=== PATIENT | female | born 1950 | race Caucasian/White ===

== ENCOUNTER 2017-09-13 07:23 | Outpatient (CLI) | payer MEDICARE, BC ==
[~2017-09-13] VITALS: Ht 170.2 cm; Wt 75.0 kg
--- NOTE | ~2017-09-13 | OP ---
PATIENT NAME: ROSSANA CEVALLOS MEDICAL RECORD: [id number] :46 LOCATION:D.CAT ADMISSION DATE: SURGEON: NORRIS PERSAUD MD DATE OF OPERATION: 09/13/2017 PROCEDURES: 1. Left heart catheterization. 2. Selective coronary angiography. 3. Left ventriculogram. 4. Vein graft angiography. 5. QUIÑONES angiography. INDICATION: Angina and coronary artery disease. PROCEDURE IN DETAIL: After informed consent was obtained and after detailed explanation of risks, benefits as well as alternative therapies, the patient elected to proceed with angiogram and heart catheterization. The right femoral area was prepped and draped in normal sterile fashion. Right femoral artery was cannulated via modified Seldinger technique with placement of 5-Gambian sheath. All catheters exchanged through this sheath. FINDINGS: The left ventriculogram was performed in standard 30-degree KC view, reveals good cardiac wall motion throughout all segments. Overall ejection fraction preserved at 50%. SELECTIVE CORONARY ANGIOGRAPHY: 1. Left main is with no significant angiographic disease. 2. Left anterior descending is totally occluded. 3. Left circumflex has mild irregularities, but no flow-limiting stenosis. 4. QUIÑONES to the LAD is widely patent. 5. Vein graft to the LAD diagonal is widely patent. 6. The distal LAD is small thread-like vessel, but no significant disease. 7. The right coronary is widely patent. OVERALL IMPRESSION: Wide patency of all her bypass graft, perfusion defect on nuclear stress test was secondary to small nature of the LAD, but there is no significant disease. Continue medical management of the coronary artery disease and cardiac risk factors. TRANSINT:[id number] Voice Confirmation ID: [id number] DOCUMENT ID: [id number] NORRIS PERSAUD MD at 1705 CC: [id number] DICTATION DATE: 09/13/17 0902 SIZING END BANDER: 09/13/17 1312 DEP CLI 09/13/17 [id number] [place] [address]
--- NOTE | ~2017-09-13 | HEMODYNAMI ---
PATIENT:ROSSANA CEVALLOS MEDICAL RECORD: [id number] : 46 LOCATION:D.CAT ADMISSION DATE: 09/13/17 Generatedon:09/13/20179:04 Patient name: ROSSANA CEVALLOS Patient #: [id number] SSN: : 1950 Date of study: 09/13/2017 Page: Of Hemodynamic Procedure Report Patient Data Patient Demographics Procedure consent was obtained First Name: ROSSANA Gender: Female Last Name: BAN : 1950 Middle Initial: S Age: 67 year(s) Patient #: [id number] Race: Additional ID: [id number] Contact details [address]: [address] [place] [address] State: [place] City: [place] Zip code: [address] Past Medical History Allergies Allergen Reaction Date Comments Reported Aspirin 09/16/2014 Morphine 09/16/2014 Penicillins 09/16/2014 Sulfa drugs 09/16/2014 Other allergy 09/16/2014 keflex Other allergy 09/13/2017 ASPIRIN, KEFLEX, MORPHINE, PCN, SULFA Admission Admission Data Admission Date: 09/13/2017 Admission Time: 7:23 Lab Results Lab Result Date: 09/13/2017 Lab Result Time: 7:50 Biochemistry Name Units Result Min Max BUN mg/dl 11 --(-*--)-- 7 18 Creatinine mg/dl 0.9 --(-*--)-- 0.6 1.3 CBC Name Units Result Min Max Hematocrit % 41.1 -*(----)-- 42 54 Hemoglobin g/dl 14 --(*---)-- 13.5 17.5 Procedure Procedure Types Cath Procedure Diagnostic Procedure LHC LHC w/Coronaries w/Grafts Procedure Description Procedure Date Procedure Date: 09/13/2017 Procedure Start Time: 8:51 Procedure End Time: 9:02 Procedure Staff Name Function Terry Adams MD Performing Physician Marlo Mir RN Nurse Raeann Cortes RT Dany Burns RT Monitor Procedure Data Cath Procedure Fluoroscopy Diagnostic fluoroscopy Total fluoroscopy Time: 1.9 time: 1.9 min min Diagnostic fluoroscopy Total fluoroscopy dose: 325 dose: 325 mGy mGy Contrast Material Contrast Material Type Amount (ml) Isovue 300 53 Entry Location Entry Primary Successful Side Size Upsize Upsize Entry Closure Succes sful Closure Location (Fr) 1 (Fr) 2 (Fr) Remarks Device Remarks Femoral Right 5 Fr Exoseal artery Estimated blood loss: 5 ml Diagnostic catheters Device Type Used For End Catheter Placement MULTIPACK Pigtail 5 Fr Procedure catheter MULTIPACK JL 4.0 5Fr Procedure catheter MULTIPACK 3DRC 5Fr Procedure catheter DIAGNOSTIC AR 2 MOD 5 Fr Procedure catheter ([id number]) Procedure Complications No complications Procedure Medications Medication Administration Route Dosage 0.9% NaCl I.V. 100 ml/hr Oxygen etCO2 Nasal cannula 2 l/min Heparin Flush Bag added to field 2 bags (1000units/500ml NS) Lidocaine 2% added to field 20 Versed I.V. 1 mg Fentanyl I.V. 50 mcg Fentanyl I.V. 50 mcg Versed I.V. 1 mg Hemodynamics Rest HGB: 14 (g/dl) Heart Rate: 63 (bpm) Snapshots Pre Cath Intra NCS Post Cath Vital Signs Time Heart Resp SPO2 etCO2 NIBP (mmHg) Rhythm Pain Sedation Rate (ipm) (%) (mmHg) Status Level (bpm) 8:32:36 61 12 100 12 133/75(111) NSR 0 (11) 10(A) , No pain 8:37:21 62 13 98 0 120/69(99) NSR 0 (11) 10(A) , No pain 8:42:07 63 14 98 0 120/70(97) NSR 0 (11) 10(A) , No pain 8:46:56 63 12 97 0 119/65(89) NSR 0 (11) 10(A) , No pain 8:51:43 63 17 99 13.5 125/69(100) NSR 0 (11) 10(A) , No pain 8:56:34 65 12 99 15 119/64(97) NSR 0 (11) 9(A) , No pain 9:01:22 65 12 99 15 117/65(93) NSR 0 (11) 10(A) , No pain Medications Time Medication Route Dose Verified Delivered Reason Notes Effe ctiveness by by 8:31:19 0.9% NaCl I.V. 100 Marlo Marlo Per ml/hr Adeola Mir physician RN RN 8:31:33 Oxygen etCO2 2 Marlo Marlo Per Nasal l/min Adeola Mir physician cannula RN RN 8:31:47 Heparin Flush added 2 Marlo Marlo used for Bag to bags Lorigan Lorigan procedure (1000units/500ml field RN RN NS) 8:31:58 Lidocaine 2% added 20ml Marlo Marlo for local to vial Lorigan Lorigan anesthetic field RN RN 8:49:10 Versed I.V. 1 mg Marlo Marlo for Lorigan Lorigan sedation RN RN 8:49:22 Fentanyl I.V. 50 Marlo Marlo for mcg Lorigan Lorigan sedation RN RN 8:52:07 Versed I.V. 1 mg Marlo Marlo for Lorigan Lorigan sedation RN RN 8:52:52 Fentanyl I.V. 50 Marlo Marlo for mcg Lorigan Lorigan sedation RN lift builder whole Log Time Note 8:11:15 Signed procedure consent form obtained from patient. 8:11:25 H&P Date Dictated: 09/05/2017 Within 30 days and on chart., H&P Addendum completed by physician on day of procedure. (MUST COMPLETE FOR ALL OUTPATIENTS). 8:11:44 Patient allergic to Other allergyASPIRIN, KEFLEX, MORPHINE, PCN, SULFA 8:15:19 Marlo Mir RN sent for patient. Start room use. 8:19:13 Patient received from Pre/Post Procedure Room to CCL 1 Alert and oriented. Tansferred to table in Supine position. 8:19:14 Warm blankets applied, and alyson hugger turned on for patient comfort. 8:19:14 Correct patient and procedure confirmed by team. 8:19:15 ECG and BP/O2 sat monitors applied to patient. 8:31:19 0.9% NaCl 100 ml/hr I.V. was administered by Marlo Mir RN; Per physician; 8:31:33 Oxygen 2 l/min etCO2 Nasal cannula was administered by Marlo Mir RN; Per physician; 8:31:38 Vital chart was started 8:31:44 Baseline sample Acquired. 8:31:46 Rhythm: sinus rhythm 8:31:47 Heparin Flush Bag (1000units/500ml NS) 2 bags added to field was administered by Marlo Mir RN; used for procedure; 8:31:47 Full Disclosure recording started 8:31:48 Pre-procedure instructions explained to patient. 8:31:49 Pre-op teaching completed and patient verbalized understanding. 8:31:50 Family in waiting room. 8:31:51 Patient NPO since Midnight. 8:31:53 Is the patient allergic to Iodine/contrast media? No. 8:31:58 Lidocaine 2% 20ml vial added to field was administered by Marlo Mir RN; for local anesthetic; 8:31:59 Is patient on blood thinner?Yes 8:32:01 ACC The patient was administered the following blood thiners within the last 24 hours: ACCPlavix 8:32:03 Patient diabetic? No. 8:32:05 Previous problem with sedation/anesthesia? No ? 8:32:05 Snore? Yes 8:32:06 Sleep apnea? No 8:32:07 Deviated septum? No 8:32:08 Opens mouth fully? Yes 8:32:08 Sticks out tongue? Yes 8:32:10 Airway obstruction? No ? 8:32:12 Dentures? Yes in tight 8:32:14 Pre procedure: right dorsailis pedis pulse 2+ Normal; easily identifiable; not easily obliterated 8:32:26 IV patent on arrival in left antecubital with 0.9% NaCl at [facility]. 8:33:02 Lab Result : BUN 11 mg/dl 8:33:02 Lab Result : Hemoglobin 14 g/dl 8:33:02 Lab Result : Creatinine 0.9 mg/dl 8:33:03 Lab Result : Hematocrit 41.1 % 8:33:05 Lab results completed and on chart. 8:33:09 Right groin area was prepped with chlora-prep and draped in sterile fashion 8:33:10 Alarms reviewed by R. N. 8:33:10 Sharps counted by scrub and verified by R.N. 8:33:12 Use device set Femoral Dx 8:33:13 ACIST Syringe (64334) opened to sterile field. 8:33:13 Bag Decanter (2002S) opened to sterile field. 8:33:14 Medline Cath Pack ([id number]) opened to sterile field. 8:33:17 ACIST Hand Control (01150) opened to sterile field. 8:33:17 ACIST Manifold (26225) opened to sterile field. 8:33:18 Tegaderm 4 x 4 (1626W) opened to sterile field. 8:33:19 SHEATH Prelude 5Fr 0.035 (INJ-4C-45-035) opened to sterile field. 8:33:21 DIAGNOSTIC Multipack 5Fr catheter set (VD4872) opened to sterile field. 8:33:22 DIAGNOSTIC WIRE .035 260cm J wire (808395) opened to sterile field. 8:39:46 Zero performed for pressure channel P1 8:48:18 Physician arrived 8:48:18 --------ALL STOP TIME OUT------ 8:48:18 Final Timeout: patient, procedure, and site verified with staff and physician. All members of the team are in agreement. 8:48:20 Right groin site verified by team. 8:48:23 Physical assessment completed. ASA score P 2 - A patient with mild systemic disease as per Terry Adams MD. 8:48:26 Sedation plan: IV Moderate Sedation Medication:Versed, Fentanyl 8:49:10 Versed 1 mg I.V. was administered by Marlo Mir RN; for sedation; 8:49:22 Fentanyl 50 mcg I.V. was administered by Marlo Mir RN; for sedation; 8:51:54 Procedure started. 8:51:57 Local anesthetic to right femoral artery with Lidocaine 1% by Terry Adams MD.INITIAL ACCESS ONLY 8:52:07 Versed 1 mg I.V. was administered by Marlo Mir RN; for sedation; 8:52:08 A 5 Fr sheath was inserted into the Right Femoral artery 8:52:13 A MULTIPACK Pigtail 5 Fr catheter was advanced over the wire and used for Procedure. 8:52:36 LV gram done using KC 8:52:38 Injector settings: Ml/sec: 10, Volume: 20, 8:52:42 EF : 50 % 8:52:45 Catheter exchanged over wire. 8:52:49 A MULTIPACK JL 4.0 5Fr catheter was advanced over the wire and used for Procedure. 8:52:52 Fentanyl 50 mcg I.V. was administered by Marlo Mir RN; for sedation; 8:53:36 LCA angiography performed. 8:53:57 Catheter exchanged over wire. 8:54:01 A MULTIPACK 3DRC 5Fr catheter was advanced over the wire and used for Procedure. 8:55:12 QUIÑONES to LAD angiography performed. 8:55:23 RCA angiography performed. 8:55:59 Catheter exchanged over wire. 8:56:24 A DIAGNOSTIC AR 2 MOD 5 Fr catheter ([id number]) was advanced over the wire and used for Procedure. 8:56:34 SVG to Diag angiography performed. 8:56:44 Catheter removed. 8:56:57 EXOSEAL 5Fr (EX500) opened to sterile field. 8:59:00 Sheath removed intact; hemostasis achieved with Exoseal to the Right Femoral artery. 8:59:01 Procedure ended.(Physican Out) 8:59:17 Fluoroscopy time 01.90 minutes. 8:59:21 Fluoroscopy dose: 325 mGy 8:59:21 Flurop Dose total: 325 8:59:24 Contrast amount:Isovue 300 53ml. 9:01:03 Sharps counted by scrub and verified by R.N. 9:01:06 Insertion/operative site no bleeding no hematoma. 9:01:09 Post-op/insertion site Right Femoral artery dressed using a 4 x 4 and Tegaderm. 9:01:12 Post right femoral artery:stable, soft, clean and dry 9:01:32 Post Procedure Pulses reassessed and unchanged 9:01:35 Post-procedure physical assessment completed. ASA score P 2 - A patient with mild systemic disease as per Terry Adams MD. 9:01:38 Post procedure rhythm: unchanged. 9:01:41 Estimated blood loss: 5 ml 9:01:42 Post procedure instruction explained to patient.Patient verbalizes understanding. 9:01:43 Patient needs reinforcement of post procedure teaching. 9:02:05 Procedure and supply charges have been captured, reviewed, submitted and are correct. 9:02:07 Procedure Complication : No complications 9:02:09 Vital chart was stopped 9:02:09 See physician's report for complete and final results. 9:02:11 Report given to Pre/Post Procedure Room. 9:02:13 Patient transfered to Pre/Post Procedure Room with Stretcher. 9:02:15 Procedure ended. 9:02:15 Full Disclosure recording stopped 9:02:18 End room use (Document Last) Device Usage Item Name Manufacture Quantity Catalog Number Hospital Part Current M inimal Lot# / Charge Number Stock Stock Serial# Code ACIST Syringe Acist 1 58553 186160 [id number] [id number] 2 0 (83381) [employer] Bag Decanter Microtek 1 2001S 638983 25723 464280 5 (2001S) Medical Inc. Medline Cath Cardinal 1 [id number] 117365 42431 134434 5 Pack Health ([id number]) ACIST Hand Acist 1 51614 213212 811741 773874 5 Control (13145) [employer] ACIST Manifold Acist 1 81383 906137 977321 624451 5 (05351) [employer] Tegaderm 4 x 4 3M 1 1626W 006405 243776 154596 5 (1626W) SHEATH Prelude Merit 1 DZC-9I-02-035 098387 335383 673161 5 5Fr 0.035 Medical (HFL-8A-96-035) DIAGNOSTIC Cardinal 1 [id number] 532498 43660 341974 3 0 Multipack 5Fr Health catheter set ([id number]) DIAGNOSTIC WIRE [facility] 1 871057 180195 029862 521838 3 0 .035 260cm J wire (851101) MULTIPACK Cardinal 1 170568 5 Pigtail 5 Fr Health catheter MULTIPACK JL Cardinal 1 [id number] 5 4.0 5Fr Health catheter MULTIPACK 3DRC Cardinal 1 402163 5 5Fr catheter Health DIAGNOSTIC AR 2 Cardinal 1 [id number] 663820 321923 834931 2 0 MOD 5 Fr Health catheter ([id number]) EXOSEAL 5Fr Cardinal 1 EX500 489125 875248 521556 1 0 (EX500) Health Signature Audit [place] Stage Time Signature Unsigned Intra-Procedure 09/13/2017 Louis Burns 9:04:45 AM RT(R) Signatures Monitor : Louis Burns RT Signature : Date : Time : [address] [place] [address]
[~2017-09-13 07:23] MED LIST: ACETAMINOPHEN325 MG PO; ISOSORBIDE MONO30 M1 PO; LASIX20 MG PO; LOPRESSOR25 MG PO; NITROSTAT0.4 MG SL; PLAVIX75 MG PO; ZYRTEC10 MG PO
[2017-09-13] MEDS ORDERED: VITAMIN B650 MG PO (07:38)
[2017-09-13 07:49] VITALS: BP 141/75; Ht 170.2 cm; Wt 75.0 kg
[2017-09-13 08:07] LABS: BASOPHILS 0.5 % (0-2); EOSINOPHILS 2.1 % (0-7); HEMATOCRIT 41.1 % (36.0-48.0); IMMATURE GRANULOCYTES 0.1 % (0-5); MCH 29.7 pg (26.0-34.0); MCHC 34.1 g/dL (31.0-37.0); MCV 87.3 fL (80.0-100.0); MEAN PLATELET VOLUME 11.4 fL (7.4-10.4); MONOCYTES 9.3 % (2-11); PLATELET COUNT 223 10x3/uL (130-400); RBC 4.71 10x6/uL (4.00-5.40); RDW 13.2 % (11.5-14.5); WBC 7.5 10x3/uL (4.8-10.8)
[2017-09-13 08:17] LABS: ANION GAP 12.7 mmol/L (8-16); CALCIUM 9.2 mg/dL (8.5-10.1); CARBON DIOXIDE 26.7 mmol/L (21.0-32.0); CREATININE - SERUM 0.9 mg/dL (0.6-1.3); POTASSIUM - SERUM 3.4 mmol/L (3.5-5.1)
== END 2017-09-13 11:30 | disposition home or self-care (01) ==
LOC: D.CATH 07:23
PROVIDERS: Internal Medicine Interventional Cardiology
DX: I25.119 Atherosclerotic heart disease of native coronary artery with unspecified angina pectoris (principal); Z95.1 Presence of aortocoronary bypass graft; Z01.812 Encounter for preprocedural laboratory examination

== ENCOUNTER → 2019-12-19 16:03 | Outpatient (CLI) | payer MEDICARE, BC ==
[2017-09-13 07:49] VITALS: BMI 25.9
[~2019-12-19 16:03] MED LIST changes: +VITAMIN B650 MG PO
[2019-12-19 16:13] LABS: BASOPHILS 0.2 % (0-2); EOSINOPHILS 1.4 % (0-7); HEMATOCRIT 25.2 % (36.0-48.0); HEMOGLOBIN 8.2 g/dL (12-16); IMMATURE GRANULOCYTES 0.5 % (0-5); LYMPHOCYTES 15.4 % (15-50); MCH 29.8 pg (26.0-34.0); MCHC 32.5 g/dL (31.0-37.0); MCV 91.6 fL (80.0-100.0); MEAN PLATELET VOLUME 9.3 fL (7.4-10.4); MONOCYTES 13.2 % (2-11); NEUTROPHILS 69.3 % (40-80); PLATELET COUNT 238 10x3/uL (130-400); RBC 2.75 10x6/uL (4.00-5.40); RDW 21.8 % (11.5-14.5); WBC 6.2 10x3/uL (4.8-10.8)
[2019-12-19 16:43] LABS: ALBUMIN 1.4 g/dL (3.4-5.0); BILIRUBIN - TOTAL 2.84 mg/dL (0.2-1.3); CARBON DIOXIDE 23.5 mmol/L (21.0-32.0); CREATININE - SERUM 0.9 mg/dL (0.6-1.3); PROTEIN - SERUM 5.6 g/dL (6.4-8.2)
[2019-12-19 16:48] LABS: ANION GAP 11.2 mmol/L (8-16); POTASSIUM - SERUM 2.7 mmol/L (3.5-5.1)
[2019-12-19 16:49] LABS: CALCIUM 5.7 mg/dL (8.5-10.1)
== END | disposition home or self-care (01) ==
LOC: D.LABREF 16:03
PROVIDERS: ATTEND Internal Medicine Hematology & Oncology
DX: C25.0 Malignant neoplasm of head of pancreas (principal); K83.1 Obstruction of bile duct